=== PATIENT | female | born 1945 | race Caucasian/White ===

== ENCOUNTER 2016-05-07 13:06 | Emergency (ER) | payer MEDICARE ==
[2016-05-07] MEDS ORDERED: ALBUTEROL/IPRATROPIUM 2.5/0.5 MG 3 ML/EACH DOSE ONE (14:08)
== END 2016-05-07 14:55 | disposition home or self-care (01) ==
LOC: ED 13:06
DX: J44.1 Chronic obstructive pulmonary disease with (acute) exacerbation (principal); I10 Essential (primary) hypertension; F17.210 Nicotine dependence, cigarettes, uncomplicated

== ENCOUNTER 2016-05-22 17:21 | Emergency (ER) | payer MEDICARE ==
[2016-05-22] MEDS ORDERED: METHYLPRED SOD SUCCINATE 125 MG VIAL ONE (17:49)
[2016-05-22] MEDS ORDERED: SODIUM CHLORIDE 0.9% 1,000 ML ONE (17:49)
[2016-05-22] MEDS ORDERED: ALBUTEROL/IPRATROPIUM 2.5/0.5 MG 3 ML/EACH DOSE ONE (17:50)
[2016-05-22 18:01] LABS: ABSOLUTE NEUTROPHIL COUNT 4.4 K/mm3 (1.8-7.7); BASO % 0.4 % (0.2-1.0); EOS # 0.2 (0.0-0.5); EOS % 2.2 % (0.9-2.9); HEMATOCRIT 37.6 % (37.0-47.0); IMM NEUT% 0.3 % (0-1); LYMPH # 2.3 (1.0-4.8); LYMPH % 30.1 % (15-45); MEAN CELL VOLUME 96.4 fl (81.0-99.0); MEAN CORPUSCULAR HEMOGLOBIN 30.8 pg (27.0-31.0); MEAN CORPUSCULAR HGB CONC 31.9 g/dl (33.0-37.0); MEAN PLATELET VOLUME 8.8 fl (7.4-10.4); MONO # 0.7 (0.0-0.8); MONO % 8.9 % (4-12); NEUT % 58.1 % (43-75); PLATELET COUNT 267 K/mm3 (130-400)
[2016-05-22 18:19] LABS: VENOUS BLOOD GAS BASE EXCESS 3.9 mmol/L (-2.0-2.0)
[2016-05-22 18:20] LABS: ALB/GLOB RATIO 1.1 (>1.0); ALBUMIN 3.5 gm/dL (3.5-5.7); CALCIUM 8.7 mg/dL (8.6-10.3)
--- NOTE | 2016-05-22 21:01 | RAD ---
CHEST 2 VIEWS HISTORY: Shortness of breath and cough x2 weeks. Frontal and lateral chest radiographs dated 05/22/2016. COMPARISON: 02/27/2016. FINDINGS: LUNG VOLUMES: Hyperinflation. Hyperlucency of the upper lung joseph. FOCAL AIRSPACE OPACITY: No gross airspace consolidation. BRONCHOVASCULAR MARKINGS: Coarsened. PLEURAL EFFUSION: None. CARDIOMEDIASTINAL SILHOUETTE: Nonenlarged. Aortic arch calcifications. PNEUMOTHORAX: None identified. OSSEOUS STRUCTURES: Degenerative change of the shoulder girdle. Minor thoracic disc degeneration. IMPRESSION: 1. No gross airspace consolidation. Coarsened bronchovascular markings, which can be seen in the setting of bronchitis, atypical/viral infection, or central airways disease. 2. Hyperinflation and hyperlucency of the upper lung joseph, correlate for chronic obstructive pulmonary disease/emphysema. 3. Evidence of aortic atherosclerotic disease.
== END 2016-05-22 19:42 | disposition home or self-care (01) ==
LOC: ED 17:21
DX: J45.909 Unspecified asthma, uncomplicated (principal); J11.1 Influenza due to unidentified influenza virus with other respiratory manifestations; R07.89 Other chest pain
CPT/HCPCS: 82803; 85025; 80053; 84484; 71020; 87804; 99284; 96374; 96361 ×2; 93005; 99283; J2930; J7030